=== PATIENT | male | born 1980 | race Caucasian/White ===

== ENCOUNTER 2020-07-16 16:49 | Emergency (ER) | payer OTHER ==
[~2020-07-16] VITALS: Ht 177.8 cm; Wt 86.9 kg
[2020-07-16 16:58] VITALS: BP 138/76
[2020-07-16] MEDS ORDERED: CLIN300C8 PO (17:35)
--- NOTE | 2020-07-16 17:35 | PHYS DOC ---
Past History Past Medical History: Other Additional Past Medical Histor: Cardiac Past Surgical History: No Surgical History Alcohol Use: None General Adult EDM: Chief Complaint: UPPER EXTREMITY PAIN HPI: HPI: 39-year-old male presents with rash under his left arm. The patient has had some irritation there since starting a new deodorant. Over the last 36 hours, he has had a palpable bump, increased pain, and surrounding erythema and warmth of the skin. It is now extending over his left breast area. He denies fever or chills. He has no history of MRSA. No previous rashes like this. There was a small amount of fluid expressed from it last night. Review of Systems: Review of Systems: Constitutional: Denies fever or chills Eyes: Denies change in visual acuity HENT: Denies nasal congestion or sore throat Respiratory: Denies cough or shortness of breath Cardiovascular: Denies chest pain or edema GI: Denies abdominal pain, nausea, vomiting, bloody stools or diarrhea : Denies dysuria Musculoskeletal: Denies back pain or joint pain Integument: Rash left axilla Neurologic: Denies headache, focal weakness or sensory changes Endocrine: Denies polyuria or polydipsia Lymphatic: Denies swollen glands Psychiatric: Denies depression or anxiety Allergies: Allergies: Allergies Coded Allergies Type Severity Reaction Last Updated Verified No Known Drug Allergies 07/16/20 No Physical Exam: PE: Constitutional: Well developed, well nourished, no acute distress, non-toxic appearance. [] HENT: Normocephalic, atraumatic, bilateral external ears normal, oropharynx moist, no oral exudates, nose normal. [] Eyes: PERRLA, EOMI, conjunctiva normal, no discharge. [] Neck: Normal range of motion, no tenderness, supple, no stridor. [] Cardiovascular:Heart rate regular rhythm, no murmur [] Lungs & Thorax: Bilateral breath sounds clear to auscultation [] Abdomen: Bowel sounds normal, soft, no tenderness, no masses, no pulsatile masses. [] Skin: 1 cm firm area in the left axilla surrounded by 8 cm of erythematous, warm skin. No fluctuant abscess [] Back: No tenderness, no CVA tenderness. [] Extremities: No tenderness, no cyanosis, no clubbing, ROM intact, no edema. [] Neurologic: Alert and oriented X 3, normal motor function, normal sensory function, no focal deficits noted. [] Psychologic: Affect normal, judgement normal, mood normal. [] Current Patient Data: Vital Signs: Vital Signs Date Time Temp Pulse Resp B/P (MAP) Pulse Ox O2 Delivery O2 Flow Rate FiO2 07/16/20 16:58 97.8 69 16 138/76 (96) 98 Room Air EKG: EKG: [] Radiology/Procedures: Radiology/Procedures: [] Heart Score: Risk Factors: Risk Factors: DM, Current or recent (<one month) smoker, HTN, HLP, family history of CAD, obesity. Risk Scores: Score 0 - 3: 2.5% MACE over next 6 weeks - Discharge Home Score 4 - 6: 20.3% MACE over next 6 weeks - Admit for Clinical Observation Score 7 - 10: 72.7% MACE over next 6 weeks - Early Invasive Strategies Course & Med Decision Making: Course & Med Decision Making Pertinent Labs and Imaging studies reviewed. (See chart for details) The central area of the cellulitis is firm and is not fluctuant. I will treat the patient with clindamycin for better MRSA coverage if this in fact is an abscess and not just inflammatory change. If the cellulitis continues to spread over the abscess becomes more developed, the patient may need to return for incision and drain and/or IV antibiotics. Patient is made aware of this. He states verbal understanding. He is stable for discharge at this time. [] Suhas Disclaimer: Suhas Disclaimer: This electronic medical record was generated, in whole or in part, using a voice recognition dictation system. Departure Departure: Impression: Primary Impression: Cellulitis of left axilla Disposition: 01 DC HOME SELF CARE/HOMELESS Condition: STABLE Referrals: PCP,NO (PCP) Patient Instructions: Cellulitis, Idff-er-Ppbo Scripts Clindamycin Hcl (CLINDAMYCIN HCL) 300 Mg Capsule 1 CAP PO TID for cellulitis, #21 CAP Prov: ROBERT BLAIR DO 07/16/20 ROBERT BLAIR DO Jul 16, 2020 17:35
[2020-07-16] MEDS ORDERED: CLINDAMYCIN HCL 150 MG CAPSULE PO ONE (18:00)
== END 2020-07-16 17:42 | disposition home or self-care (01) ==
LOC: ER 16:49
DX: L03.112 Cellulitis of left axilla (principal)
CPT/HCPCS: 99283